=== PATIENT | female | born 1950 | race Caucasian/White ===

== ENCOUNTER → 2017-08-06 | Outpatient (CLI) | payer MEDICARE, OTHER ==
--- NOTE | 2017-08-06 09:13 | RAD ---
Left ankle, 3 views, 08/06/2017: History: Fall, ankle swelling and bruising No fracture or dislocation is identified. There is mild soft tissue swelling laterally. IMPRESSION: No acute bony abnormality is detected.
== END | disposition home or self-care (01) ==
LOC: PMG 07:57
PROVIDERS: ATTEND Physician Assistant Medical
DX: S99.912A Unspecified injury of left ankle, initial encounter (principal); W19.XXXA Unspecified fall, initial encounter; Y93.89 Activity, other specified; Y92.89 Other specified places as the place of occurrence of the external cause; Y99.8 Other external cause status
CPT/HCPCS: 73610

== ENCOUNTER → 2019-03-10 | Outpatient (CLI) | payer MEDICARE ==
--- NOTE | 2019-03-10 11:30 | RAD ---
PA and lateral chest x-ray without comparison for cough, chest discomfort for one week. FINDINGS: The lungs are clear. Heart size is within normal limits. Bony vasculature is normal. No soft tissue or osseous abnormalities. IMPRESSION: 1. No acute cardiopulmonary abnormality. Electronically signed by: Ok Goldstein MD (03/10/2019 11:28 AM) [facility]
== END | disposition home or self-care (01) ==
LOC: DXRAD 08:48
PROVIDERS: ATTEND Physician Assistant Medical
DX: J40 Bronchitis, not specified as acute or chronic (principal); R07.89 Other chest pain
CPT/HCPCS: 71046